=== PATIENT | male | born 1990 ===

== ENCOUNTER 2017-10-27 06:29 | Emergency (ER) | payer BC ==
--- NOTE | 2017-10-27 07:17 | ED PDOC ---
Arrival/HPI - General Chief Complaint: ENT Problem Time Seen by Provider: 10/27/17 07:14 Historian: Patient - History of Present Illness Narrative History of Present Illness (Text): 10/27/17 07:15 pt p/w + 1.5-2 days onset of mostly left sided sore throat; with increasing pain while swallowing; pt states no voice changes, no drooling; pt states no marquez/ vision changes, no neck pain, no cp/palpitations, ? sob, no abd pain, no n/v, no numbness/tingling, + decr appetite; + subjective fever, no chills/sweats; no body pain, no runny nose/congestion; pt denied other complaints; pt is here for further eval. pt denied fall/trauma/sick contact, no travel OTC advil provided small relief PCP: none Time/Duration: < week (1.5d) Symptom Onset: Sudden Symptom Course: Unchanged Quality: Stabbing Severity Level: Severe Activities at Onset: Rest Context: Home Past Medical History - Provider Review Nursing Documentation Reviewed: Yes - Travel History Have you recently traveled outside [place] w/in the past 3 mons?: No - Past History Past History: No Previous - Infectious Disease Hx of Infectious Diseases: None - Past Medical History Past Medical History: No Previous - Psychiatric Hx Substance Use: No - Anesthesia Hx Anesthesia: No Family/Social History - Physician Review Nursing Documentation Reviewed: Yes Family/Social History: No Known Family HX Smoking Status: Never Smoked Hx Alcohol Use: No Hx Substance Use: No Hx Substance Use Treatment: No Allergies/Home Meds Allergies/Adverse Reactions: Allergies No Known Allergies Allergy (Verified 10/27/17 06:43) Review of Systems - Review of Systems Constitutional: Fevers Eyes: Normal ENT: Sore Throat. absent: TMJ Pain, Voice Changes, Rhinorrhea, Sinus Congestion Respiratory: SOB. absent: Cough Cardiovascular: Normal. absent: Chest Pain Gastrointestinal: Normal Genitourinary Male: Normal Musculoskeletal: Normal Skin: Normal Neurological: Normal Endocrine: Normal Hemo/Lymphatic: Normal Psychiatric: Normal Physical Exam Vital Signs Reviewed: Yes Vital Signs Temp Pulse Resp BP Pulse Ox 10/27/17 07:25 98.3 F 10/27/17 07:19 98.3 F 81 18 143/90 97 10/27/17 06:39 97.8 F 78 17 110/90 100 Temperature: Afebrile Blood Pressure: Normal Pulse: Regular Respiratory Rate: Normal Appearance: Positive for: Well-Appearing, Uncomfortable, Other (resting in bed, alert/awake, GCS = 15, oriented x 3, NAD, cooperative, follows command with ease ) Pain Distress: None Mental Status: Positive for: Alert and Oriented X 3 - Systems Exam Head: Present: Atraumatic, Normocephalic Pupils: Present: PERRL, Other (no nystagmus, no photophobia, sclera anicteric) Extroacular Muscles: Present: EOMI Conjunctiva: Present: Normal Ears: Present: Normal Mouth: Present: Moist Mucous Membranes, Normal Teeth Pharnyx: Present: Normal, Other (slight/mild pharyngeal ertythema, ? left tonsiliar outer region ulcer without pustular/vesicular like lesions; no exudate /lesions, no drooling/stridor, uvula/tongue are midline). No: EXUDATE, Uvular Deviation, Muffled/Hoarse Voice Nose (External): Present: Atraumatic Nose (Internal): Present: Normal Inspection Neck: Present: Normal Range of Motion, Trachea Midline, Other (no meningeal signs, no midline tenderness, no nuchal rigidity, no step off). No: MIDLINE TENDERNESS Respiratory/Chest: Present: Clear to Auscultation, Good Air Exchange Cardiovascular: Present: Regular Rate and Rhythm, Normal S1, S2. No: Murmurs Abdomen: Present: Normal Bowel Sounds, Other (well nourished male, no focal tenderness, no masses/rebound/guarding/rigidity, no pickard's sign, no mcburney' s point tenderness) Back: Present: Normal Inspection, Other (no midline tenderness). No: CVA Tenderness, Midline Tenderness Upper Extremity: Present: Normal Inspection, Normal ROM, NORMAL PULSES, Neurovascularly Intact, Capillary Refill < 2s Lower Extremity: Present: Normal Inspection, NORMAL PULSES, Normal ROM, Neurovascularly Intact, Capillary Refill < 2 s Neurological: Present: GCS=15, CN II-XII Intact, Speech Normal Skin: Present: Warm, Normal Color, Other (cap refill < 1sec, no ulcerations, no petechiae, no rashes noted). No: Rashes Psychiatric: Present: Alert, Oriented x 3 Medical Decision Making ED Course and Treatment: 10/27/17 07:16 Impression: throat pain i have consider all the differential diagnosis regarding pt's chief medical complaints/clinical findings, including but are not limited to: throat pain A/P: throat pain - observe - supportive care 10/27/17 08:44 pt felt improved pt states medications helped with the throat pain no dysphonia no drooling pt is made aware of his medical results pt is encouraged bland diet and encouraged fluid hydration pt will f/u as directed pt will be discharged home Re-evaluation Time: 08:50 Reassessment Condition: Improved - Lab Interpretations Lab Results: Lab Results 10/27/17 07:40: Grp A Beta Strep Ag Negative I have reviewed the lab results: Yes Interpretation: All labs normal - Medication Orders Current Medication Orders: Discontinued Medications Ibuprofen (Motrin Tab) 600 mg PO STAT STA Stop: 10/27/17 07:15 Last Admin: 10/27/17 07:25 Dose: 600 mg MAR Pain/Vitals Document 10/27/17 07:25 LA (Rec: 10/27/17 07:26 CASSIA [id number]) Pain Reassessment Is This A Pain ReAssessment? Yes Sleep Is patient sleeping during reassessment? No Presence of Pain Presence of Pain Yes Pain Scale Used Pain Scale Used Numeric Location Pain Location Body Site Throat Description Constant Intensity 8 Scale Used Numeric Vitals Temperature (97.6 F-99.6 F) 98.3 F Temperature Source Oral Lidocaine HCl (Lidocaine 2% Viscous) 15 ml MM STAT STA Stop: 10/27/17 07:16 Last Admin: 10/27/17 07:25 Dose: 15 ml Disposition/Present on Arrival - Present on Arrival Any Indicators Present on Arrival: No History of DVT/PE: No History of Uncontrolled Diabetes: No Urinary Catheter: No History of Decub. Ulcer: No History Surgical Site Infection Following: None - Disposition Have Diagnosis and Disposition been Completed?: Yes Diagnosis: Sore throat (viral), Throat pain in adult Disposition: HOME/ ROUTINE Disposition Time: 09:06 Patient Plan: Discharge Condition: STABLE Discharge Instructions (ExitCare): Viral Pharyngitis, Sore Throat, Adult (DC) Print Language: YI Additional Instructions: Make sure to see your doctor in 1-2 days DRINK PLENTY OF FLUIDS gurggle luke warm salt warm 3 times a day for sore throat take your medications as prescribed RETURN TO ED IF worse pain, cant breath, persistent vomiting, high fever >101- 102 for hours, altered behavior, unable to urinate, heavy/persistent bleeding, passing out, chest pain, or other medical emergencies Prescriptions: Ibuprofen [Motrin] 600 mg PO TID PRN #30 tab PRN Reason: Pain, Mild (1-3) Lidocaine 2% Viscous 10 ml MM TID PRN #100 ml PRN Reason: Pain, Mild (1-3) Referrals: Angie Green MD [Staff Provider] - Follow up with primary [facility] [place] [Outside] - Follow up with primary Forms: [facility] (Portuguese), WORK NOTE
[2017-10-27 07:20] VITALS: RESP 18
[2017-10-27 09:15] VITALS: BP 120/89; PULSE 74; TEMP 98; O2SAT 98
== END 2017-10-27 09:15 | disposition home or self-care (01) ==
LOC: ED 06:29
DX: J02.9 Acute pharyngitis, unspecified (principal)